=== PATIENT | female | born 1970 | race Caucasian/White ===

== ENCOUNTER 2018-03-18 10:18 | Outpatient (CLI) | payer OTHER | END 2018-03-18 10:29 | disposition home or self-care (01) | LOC: MAMO-SONO 10:18 | DX: Z12.31 Encounter for screening mammogram for malignant neoplasm of breast (principal); N60.11 Diffuse cystic mastopathy of right breast; N60.12 Diffuse cystic mastopathy of left breast; N64.4 Mastodynia ==

== ENCOUNTER 2022-09-21 20:12 | Emergency (ER) | payer OTHER ==
[~2022-09-21] VITALS: Ht 154.9 cm; Wt 51.7 kg
== END 2022-09-21 21:11 | disposition home or self-care (01) ==
LOC: ER 20:12
DX: R51.9 Headache, unspecified (principal); Z88.0 Allergy status to penicillin

== ENCOUNTER 2024-06-04 13:15 | Emergency (ER) | payer OTHER ==
[~2024-06-04] VITALS: Ht 180.3 cm; Wt 96.2 kg
[2024-06-04 13:45] VITALS: BP 147/81; O2SAT 98
[2024-06-04 14:43] LABS: HEMATOCRIT 39.5 % (36.0-45.00); HEMOGLOBIN 13.5 g/dL (12.0-15.00); MEAN CORPUSCULAR HEMOGLOBIN 30.2 pg (27.00-32.0); MEAN CORPUSCULAR HGB CONC 34.3 g/dl (32.0-36.0); PLATELET COUNT 388 K/uL (150-450); RED BLOOD COUNT 4.48 M/uL (4.00-6.00); RED CELL DISTRIBUTION WIDTH 13.2 % (11.5-14.5)
[2024-06-04 18:23] LABS: URINE APPEARANCE Turbid; URINE BILIRRUBIN Negative (NEGATIVE); URINE BLOOD Negative; URINE COLOR Yellow; URINE GLUCOSE Negative (NEGATIVE); URINE KETONE 15 (NEGATIVE); URINE LEUKOCYTE Small; URINE NITRATE Negative; URINE PROTEIN Trace (NEGATIVE)
[2024-06-04 18:26] LABS: URINE EPITHELIAL CELLS 169.7 uL (0.0-38.8); URINE RBC 8.8 uL (0.0-20.8); URINE WBC 24.2 uL (0.0-23.2)
[2024-06-04 19:07] LABS: URINE CAST 0.15 uL (0.0-1.40); URINE CRYSTALS MANY /HPF; URINE MUCUS SCANT
[2024-06-04] MEDS ORDERED: CIPRO500 MG PO (19:30)
== END 2024-06-04 19:58 | disposition home or self-care (01) ==
LOC: ER 13:17
DX: R42 Dizziness and giddiness (principal); R51.9 Headache, unspecified; Z20.822 Contact with and (suspected) exposure to COVID-19; Z88.0 Allergy status to penicillin

== ENCOUNTER → 2025-06-18 | Emergency (ER) | payer OTHER ==
[~2025-06-18] VITALS: Ht 180.3 cm; Wt 97.1 kg
[~2025-06-18] MED LIST: CIPRO500 MG PO; KETOROLAC TROMETHAMINE 30 MG VIAL IM ONE; KETOROLAC TROMETHAMINE 30 MG VIAL ONE; MACROBID 100 M100 MG PO; PEPCID AC20 MG PO
[2025-06-18 19:06] LABS: BASO % 1.0 % (0.1-1.2); EOS # 0.20 (0.04-0.54); EOS % 2.5 % (0.7-7.0); LYMPH # 2.36 (1.18-3.74); LYMPH % 29.6 % (19.3-53.1); MEAN PLATELET VOLUME 10.00 fl (9.4-12.4); MONO # 0.60 (0.24-0.82); MONO % 7.5 % (4.7-12.5); NEUT # 4.70 (1.56-6.13); NEUT % 59.1 % (34.0-71.1); RED CELL DISTRIBUTION WIDTH 12.2 % (11.6-14.4)
[2025-06-18 19:08] LABS: URINE APPEARANCE Cloudy; URINE BILIRRUBIN Negative (NEGATIVE); URINE BLOOD Negative; URINE COLOR Yellow; URINE GLUCOSE Negative (NEGATIVE); URINE KETONE Trace (NEGATIVE); URINE LEUKOCYTE Small; URINE NITRATE Negative; URINE PROTEIN Trace (NEGATIVE); URINE UROBILINOGEN 1.0 E.U./dl
[2025-06-18 19:11] LABS: URINE EPITHELIAL CELLS 27.9 uL (0.0-38.8); URINE RBC 6.6 uL (0.0-20.8); URINE WBC 197.3 uL (0.0-23.2)
[2025-06-18 19:22] LABS: URINE CAST 0.99 uL (0.0-1.40)
[2025-06-18 19:43] LABS: ALT/SGPT 20.0 U/L (12-78); AST/SGOT 12.0 U/L (15-37); BILIRUBIN TOTAL 0.47 mg/dL (0.3-1.2); BUN CREA RATIO 19.0 (7.0-25.0); CREATININE SERUM 1.24 mg/dL (0.55-1.02); GFR 45.25; GLOBULINA 4.2 G/DL (2.4-3.5); GLUCOSE FASTING 93.0 mg/dL (65-100); OSMOLALITY SERUM 285.0 MOSM/KG (275-295)
== END | disposition home or self-care (01) ==
LOC: ER 15:05
PROVIDERS: General Practice
DX: N39.0 Urinary tract infection, site not specified (principal); R35.0 Frequency of micturition; Z88.8 Allergy status to other drugs, medicaments and biological substances

== ENCOUNTER 2025-06-22 11:21 | Emergency (ER) | payer OTHER ==
[~2025-06-22] VITALS: Ht 180.3 cm; Wt 98.4 kg
[~2025-06-22 11:21] MED LIST changes: -KETOROLAC TROMETHAMINE 30 MG VIAL IM ONE; -KETOROLAC TROMETHAMINE 30 MG VIAL ONE
[2025-06-22] MEDS ORDERED: ACETAMINOPHEN 500 MG GEL..CAP PO ONE ×2 (15:00→15:52)
[2025-06-22] MEDS ORDERED: KETOROLAC TROMETHAMINE 30 MG VIAL IU ONE (15:00)
[2025-06-22] MEDS ORDERED: ORPHENADRINE CITRATE 30 MG/ML AMPUL IM ONE (15:00)
[2025-06-22] MEDS ORDERED: 0.9 % SODIUM CHLORIDE 1,000 ML IV ONE (15:00)
[2025-06-22] MEDS ORDERED: FAMOTIDINE/PF 20 MG in 0.9 % SODIUM CHLORIDE 8 ML IV PUSH ONE (15:00)
[2025-06-22] MEDS ORDERED: ORPHENADRINE CITRATE 30 MG/ML AMPUL ONE (15:51)
[2025-06-22] MEDS ORDERED: KETOROLAC TROMETHAMINE 30 MG VIAL ONE (15:51)
[2025-06-22] MEDS ORDERED: FAMOTIDINE/PF 20 MG/2 ML VIAL ONE (15:52)
[2025-06-22 16:21] LABS: BASO % 1.7 % (0.1-1.2); EOS # 0.21 (0.04-0.54); EOS % 3.7 % (0.7-7.0); LYMPH # 2.47 (1.18-3.74); LYMPH % 43.2 % (19.3-53.1); MEAN PLATELET VOLUME 9.70 fl (9.4-12.4); MONO # 0.38 (0.24-0.82); MONO % 6.6 % (4.7-12.5); NEUT # 2.55 (1.56-6.13); NEUT % 44.6 % (34.0-71.1); RED CELL DISTRIBUTION WIDTH 12.1 % (11.6-14.4)
[2025-06-22 16:35] LABS: ERYTHROCYTE SEDIMENTATION RATE 30 mm/hr (0-30)
[2025-06-22 16:47] LABS: INR 1.02
[2025-06-22 17:00] LABS: ALT/SGPT 18.0 U/L (12-78); AST/SGOT 12.0 U/L (15-37); BILIRUBIN TOTAL 0.41 mg/dL (0.3-1.2); BUN CREA RATIO 19.0 (7.0-25.0); CREATININE SERUM 0.84 mg/dL (0.55-1.02); GFR 70.92; GLOBULINA 4.8 G/DL (2.4-3.5); GLUCOSE FASTING 103.0 mg/dL (65-100); OSMOLALITY SERUM 283.0 MOSM/KG (275-295)
[2025-06-22 18:16] LABS: URINE APPEARANCE Cloudy; URINE BILIRRUBIN Negative (NEGATIVE); URINE BLOOD Negative; URINE COLOR Yellow; URINE GLUCOSE Negative (NEGATIVE); URINE KETONE Negative (NEGATIVE); URINE LEUKOCYTE Large; URINE NITRATE Negative; URINE PROTEIN Negative (NEGATIVE); URINE UROBILINOGEN 0.2 E.U./dl
[2025-06-22 18:20] LABS: URINE CAST 1.69 uL (0.0-1.40); URINE EPITHELIAL CELLS 105.7 uL (0.0-38.8); URINE RBC 7.0 uL (0.0-20.8); URINE WBC 382.5 uL (0.0-23.2)
[2025-06-22 19:06] LABS: TYPE CELLS RENAL TUBULAR; URINE BACTERIA > 9821.5 uL (0.0-1933)
[2025-06-22] MEDS ORDERED: PEPCID AC20 MG PO (19:42)
[2025-06-22] MEDS ORDERED: CIPRO500 MG PO (19:42)
[2025-06-22] MEDS ORDERED: NORFLEX100MG PO (19:42)
[2025-06-22] MEDS ORDERED: PYRIDIUM DS200 MG PO (19:42)
== END 2025-06-22 20:22 | disposition home or self-care (01) ==
LOC: ER 11:22
PROVIDERS: General Practice
DX: N39.0 Urinary tract infection, site not specified (principal); Z88.0 Allergy status to penicillin; E78.49 Other hyperlipidemia